=== PATIENT | female | born 1955 | race Caucasian/White ===

== ENCOUNTER 2020-10-23 11:21 | Outpatient (REF) | payer MEDICARE, MEDICAID, SELFPAY ==
[2020-10-23 21:33] LABS: HCT 43.5 % (36.0-46.0); HGB 13.8 g/dL (11.2-15.7); MCH 29.1 pg (27.0-33.0); MCHC 31.7 % (32.0-36.0); MCV 91.6 fL (80-95); MPV 12.9 fL (8.0-11.0); Platelet Count 188 10^3/uL (130-400); RBC 4.75 10^6/uL (3.93-5.22); RDW 13.6 % (11.7-14.6); RDW-SD 46.1 fL; WBC 4.81 10^3/uL (4.4-10.8)
[2020-10-23 21:56] LABS: ALT 26 U/L (14-59); AST 14 U/L (15-37); Albumin 3.7 g/dL (3.4-5.0); Alkaline Phosphatase 55 U/L (46-116); Anion Gap 9.6 mmol/L (3-11); BUN 12 mg/dL (7-18); Bilirubin, Total 0.5 mg/dL (0.2-1.0); CO2 26.4 mmol/L (21.0-32.0); CREATININE 0.6 mg/dL (0.55-1.02); Calcium 8.8 mg/dL (8.5-10.1); Calculated LDL 150 mg/dL (<100); Chloride 103 mmol/L (98-107); Cholesterol 234 mg/dL (<200); Glucose 279 mg/dL (74-106); HDL Cholesterol 68 mg/dL (40-60); Potassium 4.3 mmol/L (3.5-5.1); Sodium 139 mmol/L (136-145); Total Protein 6.5 g/dL (6.4-8.2); Triglyceride 83 mg/dL (<150)
[2020-10-23 22:06] LABS: COMMENT (LAB VIEW ONLY) 100.78 mg/dL; Microalb ug/mg Crea 8.7 ug/mg Cr
[2020-10-27 09:51] LABS: C-Peptide 1.7 ng/mL (1.1 - 4.4)
== END 2020-10-23 11:22 | disposition home or self-care (01) ==
LOC: NCHCN 11:21
PROVIDERS: PCP Family Medicine; Visit Provider Internal Medicine
DX: E11.9 Type 2 diabetes mellitus without complications (principal)
CPT/HCPCS: 80053; 80061; 85027; 86200; 82043; 82570; 84681; 86337

== ENCOUNTER 2021-04-21 09:39 | Outpatient (REF) | payer MEDICARE, MEDICAID, SELFPAY ==
[2021-04-21 13:51] LABS: Hemoglobin A1C 6.7 % (<5.7)
[2021-04-21 14:00] LABS: Calculated LDL 141 mg/dL (<100); Cholesterol 227 mg/dL (<200); HDL Cholesterol 71 mg/dL (40-60); Triglyceride 79 mg/dL (<150)
[2021-04-28 11:32] LABS: GAD65 Ab Assay 0.03 nmol/L (<= 0.02)
== END 2021-04-21 09:40 | disposition home or self-care (01) ==
LOC: NCHCN 09:39
PROVIDERS: PCP Family Medicine; Visit Provider Internal Medicine
DX: E11.9 Type 2 diabetes mellitus without complications (principal); E78.5 Hyperlipidemia, unspecified
CPT/HCPCS: 80061; 86341; 83036

== ENCOUNTER 2022-01-27 16:40 | Outpatient (REF) | payer MEDICARE, MEDICAID, SELFPAY ==
[2022-01-27 21:02] LABS: COMMENT (LAB VIEW ONLY) 132.95 mg/dL; Microalb ug/mg Crea 19.6 ug/mg Cr
== END 2022-01-27 16:41 | disposition home or self-care (01) ==
LOC: NCHCN 16:40
PROVIDERS: PCP Family Medicine; Visit Provider Internal Medicine
DX: E11.9 Type 2 diabetes mellitus without complications (principal)
CPT/HCPCS: 82043; 82570

== ENCOUNTER 2022-04-29 14:53 | Outpatient (REF) | payer MEDICARE, MEDICAID, SELFPAY ==
[2022-04-29 14:26] LABS: Anion Gap 7.6 mmol/L (3-11); BUN 10 mg/dL (7-18); CO2 27.4 mmol/L (21.0-32.0); CREATININE 0.6 mg/dL (0.55-1.02); Calcium 8.8 mg/dL (8.5-10.1); Calculated LDL 122 mg/dL (<100); Chloride 108 mmol/L (98-107); Cholesterol 216 mg/dL (<200); Estimated GFR 97.71 (mL/min/1.73m2); Glucose 93 mg/dL (74-106); HDL Cholesterol 85 mg/dL (40-60); Potassium 4.3 mmol/L (3.5-5.1); Sodium 143 mmol/L (136-145); Triglyceride 47 mg/dL (<150)
[2022-04-29 15:20] LABS: Hemoglobin A1C 6.6 % (<5.7)
== END 2022-04-29 14:54 | disposition home or self-care (01) ==
LOC: NCHCN 14:53
PROVIDERS: PCP Family Medicine; Visit Provider Internal Medicine
DX: E11.9 Type 2 diabetes mellitus without complications (principal)
CPT/HCPCS: 80048; 80061; 83036

== ENCOUNTER 2023-05-25 13:45 | Outpatient (REF) | payer MEDICARE, MEDICAID, SELFPAY ==
--- OUTSIDE RECORDS SUMMARY | 2023-05-25 13:48 | XMS_ITS | CCD ---
Author Name Unknown Address [address] [place] [id number] Organization Unknown Address [address], [place] [id number] Care Team Providers Care Baby Doctor Name Role Phone DESHAWN MEANS Attending Physician [phone] DESHAWN MEANS Rounding (Secondary) Physici an [phone] Vital Signs Unknown or Not Available. Allergies Unknown or Not Available. Procedures Unknown or Not Available. History of Immunizations Unknown or Not Available. Problems Unknown or Not Available. Results Unknown or Not Available. Active Medications Unknown or Not Available. Medications Administered During Visit Unknown or Not Available. Encounters Encounter Diagnosis Diagnosis Code Start Date Refusal of treatment by patient [id number] 07/28/2021 Social History Smoking Status Code Start Date End Date Never smoker [id number] Patient Decision Aids Unknown or Not Available. Discharge Instructions You were admitted to [facility] on 07/28/2021 13:29 with a principal diagnosis of Procedure and treatment not carried out because of patient's decision for other reasons You were discharged from [facility] on 07/28/2021 09:30 Should you have any questions prior to discharge, please contact a member of your healthcare team. If you have left the hospital and have any questions, please contact your primary care physician. Chief Complaint and Reason For Visit Unknown or Not Available. Function Status Unknown or Not Available. Plan of Care Unknown or Not Available. Referral/Transition of Care Unknown or Not Available.
--- OUTSIDE RECORDS SUMMARY | 2023-05-25 13:48 | XMS_ITS | CCD ---
Author Name Unknown Address [address] [place] [address] [id number] Organization Unknown Address [address] [place], [place] [id number] Care Team Providers Care Residential Pest Control Technician Name Role Phone DESHAWN MEANS Attending Physician [phone] DESHAWN MEANS Rounding (Secondary) Physici an [phone] Vital Signs Unknown or Not Available. Allergies Unknown or Not Available. Procedures Unknown or Not Available. History of Immunizations Unknown or Not Available. Problems Unknown or Not Available. Results Unknown or Not Available. Active Medications Unknown or Not Available. Medications Administered During Visit Unknown or Not Available. Encounters Encounter Diagnosis Diagnosis Code Start Date Unspecified lump in the left breast, lower outer quadrant [id number] 05/31/2021 Social History Smoking Status Code Start Date End Date Never smoker [id number] Patient Decision Aids Unknown or Not Available. Discharge Instructions You were admitted to [facility] on 05/31/2021 11:54 with a principal diagnosis of Unspecified lump in the left breast, lower outer quadrant You were discharged from [facility] on 05/31/2021 00:00 Should you have any questions prior to [...]
[2023-05-25 22:03] LABS: ALT 26 U/L (14-59); AST 22 U/L (15-37); Albumin 3.7 g/dL (3.4-5.0); Alkaline Phosphatase 44 U/L (46-116); Anion Gap 8.5 mmol/L (3-11); BUN 8 mg/dL (7-18); Bilirubin, Total 0.6 mg/dL (0.2-1.0); CO2 26.5 mmol/L (21.0-32.0); CREATININE 0.7 mg/dL (0.55-1.02); Calculated LDL 146 mg/dL (<100); Chloride 104 mmol/L (98-107); Cholesterol 250 mg/dL (<200); Estimated GFR 93.56 (mL/min/1.73m2); Glucose 148 mg/dL (74-106); HDL Cholesterol 91 mg/dL (40-60); Potassium 4.2 mmol/L (3.5-5.1); Sodium 139 mmol/L (136-145); Total Protein 6.9 g/dL (6.4-8.2); Triglyceride 67 mg/dL (<150)
[2023-05-25 22:17] LABS: COMMENT (LAB VIEW ONLY) 260.14 mg/dL; Microalb ug/mg Crea 6.9 ug/mg Cr
== END 2023-05-25 13:46 | disposition home or self-care (01) ==
LOC: NCHCN 13:45
PROVIDERS: PCP Family Medicine; Visit Provider Internal Medicine
DX: E78.5 Hyperlipidemia, unspecified (principal)
CPT/HCPCS: 80053; 80061; 82043; 82570

== ENCOUNTER 2024-05-20 12:36 | Outpatient (REF) | payer MEDICARE, MEDICAID, SELFPAY ==
[2024-05-20 15:17] LABS: HCT 41.4 % (36.0-46.0); HGB 13.2 g/dL (11.2-15.7); MCH 28.9 pg (27.0-33.0); MCHC 31.9 % (32.0-36.0); MCV 91 fL (80-95); Platelet Count 193 10^3/uL (130-400); RBC 4.56 10^6/uL (3.93-5.22); RDW 14.2 % (11.7-14.6); RDW-SD 47.7 fL
[2024-05-20 15:45] LABS: Anion Gap 7.1 mmol/L (3-11); BUN 6 mg/dL (7-18); CO2 26.9 mmol/L (21.0-32.0); CREATININE 0.8 mg/dL (0.55-1.02); Calcium 9.3 mg/dL (8.5-10.1); Calculated LDL 99 mg/dL (<100); Chloride 107 mmol/L (98-107); Cholesterol 208 mg/dL (<200); Estimated GFR 79.22 (mL/min/1.73m2); Glucose 140 mg/dL (74-106); HDL Cholesterol 96 mg/dL (40-60); Potassium 4.6 mmol/L (3.5-5.1); Sodium 141 mmol/L (136-145); Triglyceride 67 mg/dL (<150)
[2024-05-20 15:49] LABS: Hemoglobin A1C 6.4 % (<5.7)
== END 2024-05-20 12:37 | disposition home or self-care (01) ==
LOC: NCHCN 12:36
PROVIDERS: PCP Family Medicine; Visit Provider Internal Medicine
DX: E11.9 Type 2 diabetes mellitus without complications (principal); R03.0 Elevated blood-pressure reading, without diagnosis of hypertension
CPT/HCPCS: 80048; 80061; 85027; 83036